=== PATIENT | male | born 1960 | race Caucasian/White ===

== ENCOUNTER 2016-11-29 22:27 | Inpatient (IN) | payer OTHER ==
[~2016-11-29] VITALS: Ht 180.3 cm; Wt 84.2 kg
[2016-11-29] MEDS ORDERED: MORPHINE SULFATE 4 MG/ML, 1ML IVPush PRN (22:30)
[2016-11-29] MEDS ORDERED: ONDANSETRON 2MG/ML, 2ML IVPush ONE (22:30)
[2016-11-29] MEDS ORDERED: SODIUM CHLORIDE 0.9% 1,000ML IVBOLUS ONE (22:30)
[2016-11-29] MEDS ORDERED: ONDANSETRON 2MG/ML, 2ML ONE (22:43)
[2016-11-29] MEDS ORDERED: MORPHINE SULFATE 4 MG/ML, 1ML ONE (22:43)
[2016-11-29 22:57] LABS: ASPARTATE AMINO TRANSFERASE 29 U/L (15-37); BLOOD UREA NITROGEN 13 mg/dL (7-18)
[2016-11-29] MEDS ORDERED: ATOR40TA78 PO (23:03)
[2016-11-29] MEDS ORDERED: LOSA1TAB16 PO (23:03)
[2016-11-29] MEDS ORDERED: FLUO20CA8 PO (23:04)
[2016-11-29] MEDS ORDERED: LATA2.5D3 EACHEYE (23:04)
[2016-11-29] MEDS ORDERED: OMEP20TA62 PO (23:04)
[2016-11-29] MEDS ORDERED: POTA25TA4 PO (23:05)
[2016-11-29] MEDS ORDERED: OMNIPAQUE 350 MG/ML, 100ML BOTTLE ONE (23:25)
[2016-11-30] MEDS ORDERED: SODIUM CHLORIDE 0.9% 1,000 ML IV ONE (00:16)
[2016-11-30] MEDS ORDERED: METRONIDAZOLE PMX 500MG/100ML 100 ML IV ONE (00:30)
[2016-11-30] MEDS ORDERED: CIPROFLOXACIN/PMX 400MG/200ML 200 ML IV ONE (00:30)
[2016-11-30] MEDS ORDERED: ONDANSETRON 2MG/ML, 2ML IVPush PRN ×2 (00:30→04:30)
[2016-11-30] MEDS ORDERED: MORPHINE SULFATE 4 MG/ML, 1ML IVPush PRN (00:30)
[2016-11-30 01:45] VITALS: BP 131/80
[2016-11-30 02:08] VITALS: BP 131/80
[2016-11-30] MEDS ORDERED: ACETAMINOPHEN 325 MG TABLET PO PRN (04:30)
[2016-11-30] MEDS ORDERED: BISACODYL 10 MG SUPP PR PRN (04:30)
[2016-11-30] MEDS ORDERED: morphine SULFATE 10 MG/ML, 1ML IVPush PRN (04:30)
[2016-11-30] MEDS ORDERED: hydrALAzine 20 MG/ML, 1ML IVPush PRN (04:30)
[2016-11-30] MEDS ORDERED: OXYcodone IR 5MG TABLET PO PRN (04:30)
[2016-11-30] MEDS ORDERED: DOCUSATE 100 MG CAPSULE PO PRN (04:30)
[2016-11-30] MEDS ORDERED: POLYETHYLENE GLYCOL 17 GM PACKET PO PRN (04:30)
[2016-11-30] MEDS ORDERED: ENALAPRILAT 1.25 MG/ML, 2ML IVPush PRN (04:30)
[2016-11-30] MEDS ORDERED: CIPROFLOXACIN/PMX 400MG/200ML 200 ML IV SCH (05:00)
[2016-11-30] MEDS ORDERED: LORazepam 1MG TABLET PO PRN (05:00)
[2016-11-30 06:27] LABS: BLOOD UREA NITROGEN 11 mg/dL (7-18); C-REACTIVE PROTEIN, QUANT 0.09 mg/dL (0.02-0.49)
[2016-11-30 06:36] LABS: ASPARTATE AMINO TRANSFERASE 19 U/L (15-37)
[2016-11-30 08:30] VITALS: BP 114/77
[2016-11-30] MEDS: METRONIDAZOLE PMX 500MG/100ML 100 ML IV SCH ×2 (12:01→19:44)
[2016-11-30] MEDS: SODIUM CHLORIDE 0.9% 1,000 ML IV SCH ×2 (12:01→22:39)
[2016-11-30 13:28] VITALS: BP 129/82
[2016-11-30 19:48] VITALS: BP 119/76
[2016-12-01] MEDS: METRONIDAZOLE PMX 500MG/100ML 100 ML IV SCH (03:15)
[2016-12-01 03:27] VITALS: BP 115/87
[2016-12-01 08:08] VITALS: BP 121/78
[2016-12-01] MEDS ORDERED: metroNIDAZOLE 500 MG TABLET PO SCH (11:00)
[2016-12-01] MEDS ORDERED: CIPR500T87 PO (11:06)
[2016-12-01] MEDS ORDERED: METR500T PO (11:06)
[2016-12-01] MEDS ORDERED: CIPROFLOXACIN 500 MG TABLET PO SCH (17:00)
== END 2016-12-01 12:29 | disposition home or self-care (01) | DRG 390 ==
LOC: ED 23:51 → EDIP 11-30 00:16 → 3NE 11-30 01:45 → DCLOUNGE 12-01 12:15
PROVIDERS: ADMIT Internal Medicine; ATTEND Internal Medicine
DX: K56.60 Unspecified intestinal obstruction (principal); K52.9 Noninfective gastroenteritis and colitis, unspecified; I10 Essential (primary) hypertension; K21.9 Gastro-esophageal reflux disease without esophagitis; E78.5 Hyperlipidemia, unspecified; F41.9 Anxiety disorder, unspecified; Z88.0 Allergy status to penicillin; Z82.49 Family history of ischemic heart disease and other diseases of the circulatory system; Z82.3 Family history of stroke; Z72.0 Tobacco use
CPT/HCPCS: 36415; 74000; 74177; 80053; 80061; 81003; 83036; 83690; 84439; 84443; 85025; 85651; 86140; 87046; 87899; 89055; 96361; 96374; 96375; J0744; J2405; Q9967; J7030

== ENCOUNTER → 2017-01-05 | Outpatient (CLI) | payer OTHER ==
[~2017-01-05] MED LIST: ATOR40TA78 PO; CIPR500T87 PO; FLUO20CA8 PO; LATA2.5D3 EACHEYE; LOSA1TAB16 PO; METR500T PO; OMEP20TA62 PO; POTA25TA4 PO
== END | disposition home or self-care (01) ==
LOC: CFH 08:24
PROVIDERS: ATTEND Internal Medicine
DX: K50.018 Crohn's disease of small intestine with other complication (principal)
CPT/HCPCS: 74250

== ENCOUNTER 2017-09-29 23:01 | Emergency (ER) | payer OTHER ==
[~2017-09-29] VITALS: Ht 180.3 cm; Wt 82.0 kg
[~2017-09-29 23:01] MED LIST changes: -LOSA1TAB16 PO; +LOSA1TAB19 PO
[2017-09-29 23:22] VITALS: BP 116/74
== END 2017-09-30 00:42 | disposition home or self-care (01) ==
LOC: ED 09-30 00:15
DX: T78.3XXA Angioneurotic edema, initial encounter (principal); I10 Essential (primary) hypertension; Z72.0 Tobacco use; Y92.9 Unspecified place or not applicable
CPT/HCPCS: 99283

== ENCOUNTER → 2018-04-01 | Outpatient (CLI) | payer OTHER ==
[~2018-04-01] MED LIST changes: +FLUO40CA9 PO
[2018-04-01 12:55] LABS: BASOPHILS # (AUTO) 0.01 x10^3/uL (0-0.1); BASOPHILS % (AUTO) 0 % (0-1); EOSINOPHILS # (AUTO) 0.03 x10^3/uL (0-0.4); EOSINOPHILS % (AUTO) 0 % (1-7); LYMPHOCYTES % (AUTO) 11 % (22-44); MD NO; MEAN CORPUSCULAR HEMOGLOBIN 34.5 pg (27.5-34.5); MEAN CORPUSCULAR HGB CONC 34.9 g/dL (33.2-36.2); MEAN CORPUSCULAR VOLUME 98.9 fL (81-97); MEAN PLATELET VOLUME 7.7 fL (7.4-10.4); MONOCYTES # (AUTO) 0.44 x10^3/uL (0.2-0.8); MONOCYTES % (AUTO) 7 % (2-9); NEUTROPHILS # (AUTO) 5.25 x10^3/uL (1.8-6.8); NEUTROPHILS % (AUTO) 82 % (42-75); PLATELET COUNT 356 x10^3/uL (130-400); RED BLOOD COUNT 4.49 x10^6/uL (4.38-5.82); RED CELL DISTRIBUTION WIDTH 12.1 % (9.4-14.8)
[2018-04-01 12:58] LABS: MICROSCOPIC AUTO
[2018-04-01 13:00] LABS: CULTURE INDICATED? NO
[2018-04-01 13:07] LABS: ALANINE AMINOTRANSFERASE 38 U/L (12-78); ALBUMIN 4.2 g/dL (3.4-5.0); ANION GAP 6 mmol/L (5-15); CALCIUM 9.2 mg/dL (8.5-10.1); CHLORIDE 104 mmol/L (98-107); CREATININE 0.88 mg/dL (0.7-1.3)
[2018-04-01 13:09] LABS: ALKALINE PHOSPHATASE 70 U/L (45-117); BILIRUBIN,TOTAL 0.8 mg/dL (0.2-1.0); TOTAL PROTEIN 7.8 g/dL (6.4-8.2)
[2018-04-01 13:22] LABS: INTERNATIONAL NORMALIZED RATIO 1.08 (0.93-1.1); PROTHROMBIN TIME 11.4 Seconds (9.6-11.5)
== END | disposition home or self-care (01) ==
LOC: STAR 11:51
PROVIDERS: ATTEND Neurological Surgery
DX: Z01.818 Encounter for other preprocedural examination (principal); M50.30 Other cervical disc degeneration, unspecified cervical region; M50.20 Other cervical disc displacement, unspecified cervical region
CPT/HCPCS: 36415; 71046; 72050; 80053; 81001; 85025; 85610; 85730; 93005

== ENCOUNTER 2018-04-10 07:20 | Inpatient (IN) | payer OTHER ==
[~2018-04-10] VITALS: Ht 180.3 cm; Wt 81.6 kg
[~2018-04-10 07:20] MED LIST changes: +BACITRACIN 50,000 UNIT ONE; +BUPIVACAINE/PF-EPI 0.5% 1:200K ONE; +THROMBIN 5,000 UNIT VIAL TP ONE
[2018-04-10] MEDS ORDERED: LACTATED RINGERS 1,000 ML IV SCH (07:46)
[2018-04-10] MEDS ORDERED: ACETAMINOPHEN 500 MG TABLET PO ONE (08:00)
[2018-04-10] MEDS ORDERED: GABAPENTIN 300 MG CAPSULE PO ONE (08:00)
[2018-04-10] MEDS ORDERED: DIAZEPAM 5 MG TABLET PO ONE (08:00)
[2018-04-10] MEDS ORDERED: OXYcodone IR 5MG TABLET PO ONE (08:00)
[2018-04-10] MEDS ORDERED: POTA99TA2 PO (08:01)
[2018-04-10] MEDS ORDERED: MIDAZOLAM 1 MG/ML, 2ML ONE (10:31)
[2018-04-10] MEDS ORDERED: FENTANYL PF 250 MCG/5ML ONE ×2 (10:32→10:59)
[2018-04-10] MEDS ORDERED: ONDANSETRON 2MG/ML, 2ML ONE (10:42)
[2018-04-10] MEDS ORDERED: DEXAMETHASONE 4 MG/ML, 5ML ONE (10:42)
[2018-04-10] MEDS ORDERED: PROPOFOL 10 MG/ML, 20ML ONE (10:42)
[2018-04-10] MEDS ORDERED: CEFAZOLIN 1,000 MG ONE (10:42)
[2018-04-10] MEDS ORDERED: ROCURONIUM 10 MG/ML,10ML ONE (10:42)
[2018-04-10] MEDS ORDERED: PROPOFOL 10 MG/ML, 50ML ONE (10:42)
[2018-04-10] MEDS ORDERED: LABETALOL 5MG/ML, 20ML IV PRN (11:00)
[2018-04-10] MEDS ORDERED: OXYcodone 5 MG/5 ML ORAL.SOL UDC PO PRN (11:00)
[2018-04-10] MEDS ORDERED: MEPERIDINE/PF 25MG/0.5ML IVPush PRN (11:00)
[2018-04-10] MEDS ORDERED: FENTANYL PF 100 MCG/2ML ONE ×2 (12:43→13:13)
[2018-04-10] MEDS ORDERED: OXYcodone 5 MG/5 ML ORAL.SOL UDC ONE ×2 (12:43→12:47)
[2018-04-10] MEDS: FENTANYL PF 100 MCG/2ML IV PRN ×3 (12:52→13:18)
[2018-04-10] MEDS ORDERED: HYDROmorphone 2 MG/ML, 1ML ONE (13:27)
[2018-04-10] MEDS ORDERED: HYDROmorphone PCA 30 MG/30 ML IV PRN ×2 (13:30→15:00)
[2018-04-10] MEDS: HYDROmorphone 1 MG/ML, 1ML IV PRN ×2 (13:32→13:38)
[2018-04-10] MEDS ORDERED: MAGNESIUM HYDROXIDE 8%, 30ML UDC PO PRN (15:00)
[2018-04-10] MEDS ORDERED: HYDROcodone/APAP 10/325 MG TABLET PO PRN (15:00)
[2018-04-10] MEDS ORDERED: DIPHENHYDRAMINE 50 MG/ML, 1ML IVPush PRN (15:00)
[2018-04-10] MEDS ORDERED: TIZANIDINE 4MG TABLET PO PRN (15:00)
[2018-04-10] MEDS ORDERED: morphine SULFATE 10 MG/ML, 1ML IV PRN (15:00)
[2018-04-10] MEDS ORDERED: DIPHENHYDRAMINE 25 MG CAPSULE PO PRN (15:00)
[2018-04-10] MEDS ORDERED: ONDANSETRON 2MG/ML, 2ML IV PRN (15:00)
[2018-04-10] MEDS ORDERED: BISACODYL 10 MG SUPP PR PRN (15:00)
[2018-04-10] MEDS: HYDROcodone/APAP 5/325 TABLET PO PRN ×3 (18:00→22:50)
[2018-04-10] MEDS: NS + 20MEQ KCL 1,000 ML IV SCH (18:00)
[2018-04-10] MEDS: CEFAZOLIN PMX 1GM/50ML 50 ML IVPB SCH (18:11)
[2018-04-10] MEDS ORDERED: SCOPOLAMINE PATCH, 1.5MG PATCH.TD72 TD ONE (18:42)
[2018-04-10 20:39] VITALS: BP 113/72
[2018-04-10] MEDS ORDERED: HYDROCHLOROTHIAZIDE 12.5 MG CAPSULE PO SCH (21:00)
[2018-04-10] MEDS ORDERED: LOSARTAN 50MG TABLET PO SCH (21:00)
[2018-04-10] MEDS ORDERED: LATANOPROST OPHTH 0.005%, 2.5ML OP SCH (21:00)
[2018-04-10] MEDS ORDERED: ATORVASTATIN 40 MG TABLET PO SCH (21:00)
[2018-04-10] MEDS ORDERED: POTASSIUM GLUCONATE HOMEMEDPO SCH (21:00)
[2018-04-10] MEDS ORDERED: FLUOXETINE HCL 20 MG CAPSULE PO SCH (21:00)
[2018-04-10 23:57] VITALS: BP 122/76
[2018-04-11] MEDS: HYDROcodone/APAP 5/325 TABLET PO PRN ×3 (03:01→10:37)
[2018-04-11] MEDS: CEFAZOLIN PMX 1GM/50ML 50 ML IVPB SCH (03:03)
[2018-04-11 03:59] VITALS: BP 115/75
[2018-04-11] MEDS: NS + 20MEQ KCL 1,000 ML IV SCH (04:00)
[2018-04-11] MEDS ORDERED: HYDROCHLOROTHIAZIDE 12.5 MG CAPSULE PO SCH (09:00)
[2018-04-11] MEDS ORDERED: SENNA/DOCUSATE TABLET PO SCH (09:00)
[2018-04-11] MEDS ORDERED: LOSARTAN 50MG TABLET PO SCH (09:00)
[2018-04-11 10:07] VITALS: BP 126/80
[2018-04-11] MEDS ORDERED: HYDR-3307 PO (10:44)
[2018-04-11] MEDS ORDERED: TIZA4TAB9 PO (10:45)
== END 2018-04-11 12:10 | disposition home or self-care (01) | DRG 473 ==
LOC: OUT 07:20 → 4NOR 14:10 → OUT 14:21 → 4NOR 14:21 → DCLOUNGE 04-11 12:05
PROVIDERS: ADMIT Neurological Surgery; ATTEND Neurological Surgery
PROC: 0RB30ZZ Excision of Cervical Vertebral Disc, Open Approach (ICD-10-PCS; 2018-04-10)
PROC: 0RG10A0 Fusion of Cervical Vertebral Joint with Interbody Fusion Device, Anterior Approach, Anterior Column, Open Approach (ICD-10-PCS; principal; 2018-04-10 10:30)
DX: M50.121 Cervical disc disorder at C4-C5 level with radiculopathy (principal); I10 Essential (primary) hypertension; E78.00 Pure hypercholesterolemia, unspecified; F41.9 Anxiety disorder, unspecified; Z88.0 Allergy status to penicillin; Z82.61 Family history of arthritis; Z82.49 Family history of ischemic heart disease and other diseases of the circulatory system
CPT/HCPCS: 72040; 95938; 95941; C1713; G0378; J0690; J1100; J1170; J2250; J2405; J2704; J3010; J3480; J7120; Q0163

== ENCOUNTER 2018-11-13 18:39 | Emergency (ER) | payer OTHER ==
[~2018-11-13] VITALS: Ht 180.3 cm; Wt 84.7 kg
[~2018-11-13 18:39] MED LIST changes: -BACITRACIN 50,000 UNIT ONE; -BUPIVACAINE/PF-EPI 0.5% 1:200K ONE; +HYDR-3307 PO; +POTA99TA2 PO; -THROMBIN 5,000 UNIT VIAL TP ONE; +TIZA4TAB9 PO
[2018-11-13] MEDS ORDERED: FAMOTIDINE 20 MG TABLET PO ONE (20:00)
[2018-11-13] MEDS ORDERED: FAMOTIDINE 20 MG TABLET ONE (20:14)
--- NOTE | 2018-11-13 20:35 | NUR ---
PT IN BED ON CARDIAC,O2 AND NIBP MONITORING. PT MEDICATED PER ORDER. CALL LIGHT IN REACH
[2018-11-13 21:21] VITALS: BP 122/76
== END 2018-11-13 21:24 | disposition home or self-care (01) ==
LOC: ED 21:18
DX: T63.461A Toxic effect of venom of wasps, accidental (unintentional), initial encounter (principal); Y92.89 Other specified places as the place of occurrence of the external cause
CPT/HCPCS: 73552; 93005; 99283; J7512